=== PATIENT | male | born 1960 | race Two or more races ===

== ENCOUNTER 2018-07-23 10:25 | Emergency (ER) | payer MEDICAID ==
[~2018-07-23] VITALS: Ht 185.4 cm; Wt 128.0 kg
[~2018-07-23 10:25] MED LIST: AMLO10TA4 PO; COUMADIN PO; CYCL-1 PO; ENOX100D2 IM; HYDR-4383 PO; LISI10TA4 PO
[2018-07-23] MEDS ORDERED: tranexamic acid 100mg/ml inj. TP ONE (11:05)
[2018-07-23 11:27] LABS: BASOPHILS % (AUTO) 0.3 % (0-1); EOSINOPHILS # (AUTO) 0.1 X10'3 (0-0.9); EOSINOPHILS % (AUTO) 0.9 % (0-6); HEMATOCRIT 29.6 % (42.0-52.0); HEMOGLOBIN 9.8 g/dl (14.0-17.9); LYMPHOCYTES % (AUTO) 18.1 % (21-51); MEAN CORPUSCULAR HEMOGLOBIN 27.9 PG (27.0-31.0); MEAN CORPUSCULAR VOLUME 84.4 FL (78-98); MEAN PLATELET VOLUME 9.2 FL (7.4-10.4); MONOCYTES # (AUTO) 0.7 X10'3 (0-0.9); MONOCYTES % (AUTO) 5.9 % (2-12); NEUTROPHILS # (AUTO) 8.3 X10'3 (1.8-7.7); NEUTROPHILS % (AUTO) 74.8 % (42-75); PLATELET COUNT 206 X10'3 (140-440); RED BLOOD COUNT 3.51 X10'6 (4.70-6.10); RED CELL DISTRIBUTION WIDTH 16.3 % (11.5-14.5); WHITE BLOOD COUNT 11.1 X10'3 (4.5-11.0)
[2018-07-23] MEDS ORDERED: ondansetron/PF 4mg/2ml inj IV ONE (11:30)
[2018-07-23 11:36] LABS: ALBUMIN 3.3 G/DL (3.4-5.0); ANION GAP 9 (8-16); BLOOD UREA NITROGEN 23 MG/DL (7-18); BUN/CREATININE RATIO 28.4 (5.4-32.0); CHLORIDE 105 MMOL/L (99-107); CREATININE 0.81 MG/DL (0.60-1.10); GLUCOSE 191 MG/DL (70-104); POTASSIUM 4.1 MMOL/L (3.5-5.1); SODIUM 141 MMOL/L (135-145); TOTAL CARBON DIOXIDE 27.4 MMOL/L (24-32); eGFR > 90 ML/MIN
[2018-07-23 11:38] LABS: PROTHROMBIN TIME 19.7 SECONDS (9.0-12.0)
[2018-07-23 13:32] VITALS: BP 153/100
== END 2018-07-23 13:34 | disposition short-term general hospital (02) ==
LOC: ER 10:25
DX: R04.0 Epistaxis (principal); I11.0 Hypertensive heart disease with heart failure; I50.9 Heart failure, unspecified; Z98.890 Other specified postprocedural states; Z79.899 Other long term (current) drug therapy
CPT/HCPCS: 30901; 36415; 80048; 85025; 85610; 96374; 99285; J2405

== ENCOUNTER → 2021-03-13 | Emergency (ER) | payer MEDICAID ==
[~2021-03-13] VITALS: Ht 170.2 cm; Wt 124.0 kg
[~2021-03-13] MED LIST changes: +LISI10TA27 PO; -LISI10TA4 PO; +OXYM30SP26 BOTHNARES; +oxymetazoline 15 ML nasal spray NS ONE; +tranexamic acid 100mg/ml inj. TP ONE
[2021-03-13 19:14] VITALS: BP 169/97
--- NOTE | 2021-03-14 03:11 | NUR ---
PT DISCHARGED IN ERROR
== END | disposition home or self-care (01) ==
LOC: ER 18:57
DX: R04.0 Epistaxis (principal); I11.0 Hypertensive heart disease with heart failure; I50.9 Heart failure, unspecified; Z98.890 Other specified postprocedural states; Z79.899 Other long term (current) drug therapy
CPT/HCPCS: 99282

== ENCOUNTER 2021-08-16 17:31 | Emergency (ER) | payer MEDICAID ==
[~2021-08-16] VITALS: Ht 180.3 cm; Wt 118.2 kg
[~2021-08-16 17:31] MED LIST changes: +LIDOcaine 1% W/epiNEPHrine 1:100,000 20ml vial ONE; -oxymetazoline 15 ML nasal spray NS ONE; -tranexamic acid 100mg/ml inj. TP ONE
[2021-08-16] MEDS ORDERED: HYDR-3965 PO (19:55)
[2021-08-16] MEDS ORDERED: CEPH250T PO (19:55)
[2021-08-16 20:05] VITALS: BP 168/97
== END 2021-08-16 20:22 | disposition home or self-care (01) ==
LOC: ER 20:17
DX: S61.412A Laceration without foreign body of left hand, initial encounter (principal); I11.0 Hypertensive heart disease with heart failure; I50.9 Heart failure, unspecified; Z79.899 Other long term (current) drug therapy; Z79.01 Long term (current) use of anticoagulants; W45.8XXA Other foreign body or object entering through skin, initial encounter; Y93.89 Activity, other specified; Y92.89 Other specified places as the place of occurrence of the external cause; Y99.8 Other external cause status
CPT/HCPCS: 12002; 99283; J3490

== ENCOUNTER 2023-03-22 01:04 | Emergency (ER) | payer MEDICAID ==
[~2023-03-22] VITALS: Ht 177.8 cm; Wt 122.7 kg
[~2023-03-22 01:04] MED LIST changes: -LIDOcaine 1% W/epiNEPHrine 1:100,000 20ml vial ONE
[2023-03-22 01:13] VITALS: TEMP 98.9
[2023-03-22] MEDS ORDERED: LORazepam 2 mg/ml vial IV ONE (02:35)
[2023-03-22] MEDS ORDERED: hydrALAZINE 20mg/ml inj. IV ONE (02:35)
[2023-03-22 02:57] LABS: BASOPHILS # (AUTO) 0.1 X10'3 (0-0.2); BASOPHILS % (AUTO) 0.7 % (0-1); EOSINOPHILS # (AUTO) 0.2 X10'3 (0-0.9); EOSINOPHILS % (AUTO) 2.3 % (0-6); HEMATOCRIT 47.8 % (42.0-52.0); HEMOGLOBIN 15.5 g/dl (14.0-17.9); LYMPHOCYTES # (AUTO) 1.3 X10'3 (1.1-4.8); MEAN CORPUSCULAR HEMOGLOBIN 27.1 PG (27.0-31.0); MEAN CORPUSCULAR HGB CONC 32.5 g/dL (33.0-36.5); MEAN CORPUSCULAR VOLUME 83.4 FL (78-98); MONOCYTES # (AUTO) 0.7 X10'3 (0-0.9); NEUTROPHILS # (AUTO) 5.1 X10'3 (1.8-7.7); PLATELET COUNT 182 X10'3 (140-440); RED BLOOD COUNT 5.73 X10'6 (4.70-6.10); RED CELL DISTRIBUTION WIDTH 15.7 % (11.5-14.5); WHITE BLOOD COUNT 7.3 X10'3 (4.5-11.0)
[2023-03-22 03:10] LABS: ALANINE AMINOTRANSFERASE 23 U/L (12-78); ALBUMIN 3.9 G/DL (3.4-5.0); ALBUMIN/GLOBULIN RATIO 1.1 (1.1-1.5); ALKALINE PHOSPHATASE 83 IU/L (46-116); ANION GAP 8 (8-16); ASPARTATE AMINO TRANSFERASE 24 U/L (10-37); BILIRUBIN,TOTAL 0.8 MG/DL (0.1-1.0); BLOOD UREA NITROGEN 15 MG/DL (7-18); CALCIUM 8.7 MG/DL (8.5-10.1); CHLORIDE 102 MMOL/L (99-107); CREATININE 0.88 MG/DL (0.60-1.10); GLUCOSE 167 MG/DL (70-104); POTASSIUM 3.5 MMOL/L (3.5-5.1); SODIUM 138 MMOL/L (135-145); TOTAL CARBON DIOXIDE 28.2 MMOL/L (24-32); TOTAL PROTEIN 7.6 G/DL (6.4-8.2); eCRCL 89 ML/MIN; eGFR 87 ML/MIN
[2023-03-22 03:14] LABS: PROTHROMBIN TIME 39.8 SECONDS (9.0-12.0)
--- NOTE | 2023-03-22 03:17 | NUR ---
PT PRESENTS W/ EPISTAXIS AND HTN 260/152 P 95 NAD NOTED THUS FAR. PT CURRENTLY TAKIN GAMLODIPINE 10MG PO QD, LISINOPRIL 10MG PO QD, AFRIN NASAL SPRAY 30ML QD, COUMADIN 4 MG PO QD. LAST TAKEN ALL MEDS NOTED QHS ON 03/21/23. NOTIFIED.
[2023-03-22] MEDS ORDERED: tranexamic acid 100mg/ml inj. TP ONE (04:10)
[2023-03-22] MEDS ORDERED: metoprolol tartrate 50mg tablet PO ONE (04:10)
[2023-03-22] MEDS ORDERED: oxymetazoline 15 ML nasal spray NS ONE (04:10)
[2023-03-22] MEDS ORDERED: HYDROchlorothiazide 25mg tablet PO ONE (04:10)
[2023-03-22] MEDS ORDERED: LIDOcaine 1% W/epiNEPHrine 1:100,000 20ml vial IJ ONE (04:25)
[2023-03-22] MEDS ORDERED: hydrALAZINE 20mg/ml inj. IV STA (04:54)
[2023-03-22] MEDS ORDERED: ondansetron/PF 4mg/2ml inj IV ONE (06:00)
[2023-03-22] MEDS ORDERED: OXYM-21 BOTHNARES (06:09)
[2023-03-22] MEDS ORDERED: cloNIDine 0.1 mg tablet PO ONE (07:05)
--- NOTE | 2023-03-22 07:06 | NUR ---
per nightman RN, IV Hydralazine held due to BP coming down. This RN assume care of pt. SBP >170. Dr. Castro updated. Clonidine ordered.
[2023-03-22] MEDS ORDERED: CEPH-585 PO (09:06)
[2023-03-22 09:30] VITALS: BP 134/78; PULSE 58; RESP 18; O2SAT 98
== END 2023-03-22 09:22 | disposition home or self-care (01) ==
LOC: ER 01:04
DX: R04.0 Epistaxis (principal); I11.0 Hypertensive heart disease with heart failure; I50.9 Heart failure, unspecified; Z79.2 Long term (current) use of antibiotics; Z79.899 Other long term (current) drug therapy; Z79.01 Long term (current) use of anticoagulants
CPT/HCPCS: 36415; 80053; 84484; 85025; 85610; 96374; 96375; 99285; J0360; J2060

== ENCOUNTER 2023-03-24 07:20 | Emergency (ER) | payer MEDICAID ==
[~2023-03-24] VITALS: Ht 175.3 cm; Wt 120.0 kg
[~2023-03-24 07:20] MED LIST changes: +CEPH-585 PO; +OXYM-21 BOTHNARES
[2023-03-24 07:29] VITALS: BP 195/116; PULSE 79; RESP 18; TEMP 97.6; O2SAT 96
--- NOTE | 2023-03-24 07:31 | NUR ---
[id number]
== END 2023-03-24 09:39 | disposition home or self-care (01) ==
LOC: ER 07:20
DX: Z48.00 Encounter for change or removal of nonsurgical wound dressing (principal); R04.0 Epistaxis; R03.0 Elevated blood-pressure reading, without diagnosis of hypertension; I11.0 Hypertensive heart disease with heart failure; I50.9 Heart failure, unspecified; Z79.2 Long term (current) use of antibiotics; Z79.899 Other long term (current) drug therapy
CPT/HCPCS: 99281

== ENCOUNTER 2024-03-06 00:48 | Inpatient (IN) | payer MEDICAID ==
[~2024-03-06] VITALS: Ht 170.2 cm; Wt 125.4 kg
[2024-03-06] VITALS (13 sets, daily range): BP systolic 132–158; BP diastolic 56–74; PULSE 61–95; RESP 16–20; TEMP 97–99.4; O2SAT 93–98
[~2024-03-06 00:48] MED LIST changes: -CEPH-585 PO
[2024-03-06 01:13] LABS: BASOPHILS # (AUTO) 0.1 X10'3 (0-0.2); BASOPHILS % (AUTO) 0.9 % (0-1); EOSINOPHILS # (AUTO) 0.2 X10'3 (0-0.9); EOSINOPHILS % (AUTO) 2.2 % (0-6); HEMATOCRIT 38.3 % (42.0-52.0); HEMOGLOBIN 12.2 g/dl (14.0-17.9); LYMPHOCYTES # (AUTO) 1.2 X10'3 (1.1-4.8); LYMPHOCYTES % (AUTO) 14.5 % (21-51); MEAN CORPUSCULAR HEMOGLOBIN 26.2 PG (27.0-31.0); MEAN CORPUSCULAR HGB CONC 31.9 g/dL (33.0-36.5); MEAN CORPUSCULAR VOLUME 82.1 FL (78-98); MEAN PLATELET VOLUME 8.6 FL (7.4-10.4); MONOCYTES # (AUTO) 0.6 X10'3 (0-0.9); NEUTROPHILS # (AUTO) 6.2 X10'3 (1.8-7.7); NEUTROPHILS % (AUTO) 75.4 % (42-75); PLATELET COUNT 167 X10'3 (140-440); RED BLOOD COUNT 4.66 X10'6 (4.70-6.10); RED CELL DISTRIBUTION WIDTH 18.7 % (11.5-14.5); WHITE BLOOD COUNT 8.3 X10'3 (4.5-11.0)
[2024-03-06 01:41] LABS: ALANINE AMINOTRANSFERASE 31 U/L (12-78); ALBUMIN 3.4 G/DL (3.4-5.0); ALBUMIN/GLOBULIN RATIO 0.9 (1.1-1.5); ALKALINE PHOSPHATASE 86 IU/L (46-116); ANION GAP 6 (8-16); ASPARTATE AMINO TRANSFERASE 36 U/L (10-37); BILIRUBIN,TOTAL 0.6 MG/DL (0.1-1.0); BLOOD UREA NITROGEN 16 MG/DL (7-18); CALCIUM 8.3 MG/DL (8.5-10.1); CHLORIDE 104 MMOL/L (99-107); CREATININE 0.94 MG/DL (0.60-1.10); GLUCOSE 222 MG/DL (70-104); PRO BRAIN NATRIURETIC PEPTIDE 829 PG/ML (0-125); SODIUM 139 MMOL/L (135-145); TOTAL CARBON DIOXIDE 29.2 MMOL/L (24-32); eCRCL 74 ML/MIN; eGFR 81 ML/MIN
[2024-03-06 01:44] LABS: POTASSIUM 3.7 MMOL/L (3.5-5.1)
[2024-03-06 02:07] LABS: BILIRUBIN,URINE NEGATIVE (Neg); CLARITY,URINE CLEAR (Clear); COLOR,URINE YELLOW (Yellow); GLUCOSE, URINE >=1000 mg/dl (Neg); KETONES,URINE NEGATIVE (Neg); LEUKOCYTE ESTERASE ,URINE NEGATIVE (Neg); NITRITES, URINE NEGATIVE (Neg); OCCULT BLOOD,URINE TRACE-INTACT (Neg); PROTEIN,URINE 100 mg/dl (Neg)
[2024-03-06 02:12] LABS: UA COLLECTION TYPE VOIDED
[2024-03-06 02:15] LABS: BACTERIA,URINE FEW /HPF (Neg); RBC,URINE 0-2 /HPF (0-2); SQUAMOUS EPITHELIAL CELL,UR FEW /LPF (FEW); WBC,URINE 0-4 /HPF (0-4)
[2024-03-06] MEDS ORDERED: WARF1TAB83 (02:51)
[2024-03-06] MEDS ORDERED: AMLO10TA13 PO (02:51)
[2024-03-06] MEDS ORDERED: LISI30TA4 PO (02:51)
[2024-03-06] MEDS ORDERED: ATOR20TA66 PO (02:51)
[2024-03-06 02:53] LABS: ANISOCYTOSIS 2+; PLATELET ESTIMATE NORMAL
[2024-03-06 02:54] LABS: ELLIPTOCYTES FEW; POLYCHROMASIA FEW
[2024-03-06] MEDS: aspirin 325mg tablet PO ONE (03:02)
[2024-03-06] MEDS: furosemide 10 MG/1 ML 10ml inj IV ONE (03:02)
[2024-03-06] MEDS: amLODIPine 5mg tablet PO ONE (03:02)
[2024-03-06] MEDS ORDERED: ondansetron/PF 4mg/2ml inj IV PRN (04:30)
[2024-03-06] MEDS ORDERED: HYDROcodone/acetaminophen 5mg/325mg tablet PO PRN (04:30)
[2024-03-06] MEDS ORDERED: potassium Cl 40MEQ/1/2NS 520ml 520 ML IV PRN (04:30)
[2024-03-06] MEDS ORDERED: acetaminophen 325mg tablet PO PRN ×2 (04:30)
[2024-03-06] MEDS ORDERED: magnesium sulf-water 2g/50mL 50 ML IV PRN (04:30)
[2024-03-06] MEDS ORDERED: potassium Cl 20 mEq SR tablet PO PRN ×2 (04:30)
[2024-03-06] MEDS ORDERED: magnesium sulf-water 4G/100mL 100 ML IV PRN (04:30)
[2024-03-06] MEDS ORDERED: mag hydrox/Alum hydrox/simeth 30ml oral suspension PO PRN (04:30)
[2024-03-06] MEDS ORDERED: magnesium Cl slow-release 64mg tablet PO PRN (04:30)
[2024-03-06 05:01] LABS: HEMOGLOBIN A1C 10.3 % (4.5-6.2)
[2024-03-06 05:15] LABS: FREE T4 (FREE THYROXINE) 1.13 NG/DL (0.73-1.40); THYROID STIMULATING HORMONE 2.58 ulU/ml (0.34-4.50)
[2024-03-06 05:45] LABS: MAGNESIUM 1.9 MG/DL (1.5-2.4); POTASSIUM 3.7 MMOL/L (3.5-5.1)
[2024-03-06] MEDS: K and/or MAG REPLACEMENT MC SCH (08:00)
[2024-03-06] MEDS: amLODIPine 5mg tablet PO SCH (08:22)
[2024-03-06] MEDS: aspirin 81mg, enteric-coated 1 TAB TABLET.DR PO SCH (08:23)
[2024-03-06] MEDS: atorvastatin 20mg tablet PO SCH (08:23)
[2024-03-06] MEDS: lisinopril 10 MG tablet PO SCH (08:24)
[2024-03-06] MEDS: furosemide 40mg/4ml inj IV SCH (08:24)
[2024-03-06] MEDS ORDERED: dextrose 50%-water 50ml dispensing syringe IV PRN ×2 (10:45)
[2024-03-06] MEDS ORDERED: DEXTROSE 15 GM of carb/4 tabs (each vial/BOTTLE has 4 tablets) PO PRN ×2 (10:45)
[2024-03-06] MEDS ORDERED: glucagon, human recombinant 1mg kit SUBCUT PRN (10:45)
[2024-03-06 10:48] LABS: INR 3.3 INR; PROTHROMBIN TIME 32.7 SECONDS (9.0-12.0)
[2024-03-06] MEDS: methylPREDNISolone sod succ 125mg/2ml vial IV ONE (12:35)
[2024-03-06] MEDS: CefTRIAXone/D5W-Rocephin 1gm 50 ML IV SCH (13:47)
[2024-03-06] MEDS: azithromycin/NS 500mg/250ml 250 ML IV SCH (14:31)
[2024-03-06] MEDS: INSULIN LISPRO 100 UNIT/ML INSULN.PEN MULTI-DOSE SQ SCH ×2 (14:47)
[2024-03-06] MEDS: ipratropium/albuterol 3ml nebule NEB SCH (15:00)
[2024-03-06] MEDS: methylPREDNISolone sod succ 125mg/2ml vial IV SCH (17:20)
[2024-03-06] MEDS: warfarin 1mg tablet PO ONE (20:34)
[2024-03-06] MEDS: insulin glargine (Lantus) pen - multi-dose SQ SCH (22:14)
[2024-03-07] VITALS (13 sets, daily range): BP systolic 108–162; BP diastolic 54–85; PULSE 55–95; RESP 15–18; TEMP 96.9–99.1; O2SAT 91–99
[2024-03-07 07:44] LABS: BASOPHILS % (AUTO) 0.2 % (0-1); EOSINOPHILS % (AUTO) 0.1 % (0-6); HEMOGLOBIN 13.7 g/dl (14.0-17.9); LYMPHOCYTES # (AUTO) 0.5 X10'3 (1.1-4.8); LYMPHOCYTES % (AUTO) 4.5 % (21-51); MEAN CORPUSCULAR HEMOGLOBIN 26.8 PG (27.0-31.0); MEAN CORPUSCULAR HGB CONC 32.6 g/dL (33.0-36.5); MEAN CORPUSCULAR VOLUME 82.4 FL (78-98); MEAN PLATELET VOLUME 9.1 FL (7.4-10.4); MONOCYTES # (AUTO) 0.1 X10'3 (0-0.9); MONOCYTES % (AUTO) 1.4 % (2-12); NEUTROPHILS # (AUTO) 9.8 X10'3 (1.8-7.7); NEUTROPHILS % (AUTO) 93.8 % (42-75); PLATELET COUNT 173 X10'3 (140-440); RED CELL DISTRIBUTION WIDTH 19.1 % (11.5-14.5); WHITE BLOOD COUNT 10.5 X10'3 (4.5-11.0)
[2024-03-07 08:03] LABS: PROTHROMBIN TIME 29.3 SECONDS (9.0-12.0)
[2024-03-07 08:35] LABS: ALBUMIN 3.3 G/DL (3.4-5.0); ANION GAP 11 (8-16); BLOOD UREA NITROGEN 20 MG/DL (7-18); BUN/CREATININE RATIO 22.7 (10.0-20.0); CALCIUM 8.7 MG/DL (8.5-10.1); CHLORIDE 102 MMOL/L (99-107); CHOL/HDL RATIO 2.8 (0.00-4.99); CHOLESTEROL 157 MG/DL (0-200); CREATININE 0.88 MG/DL (0.60-1.10); GLUCOSE 287 MG/DL (70-104); HDL CHOLESTEROL 57 MG/DL (35-60); LDL CHOLESTEROL 84 MG/DL (50-100); MAGNESIUM 1.9 MG/DL (1.5-2.4); PHOSPHORUS 5.2 MG/DL (2.3-4.5); POTASSIUM 3.9 MMOL/L (3.5-5.1); SODIUM 141 MMOL/L (135-145); TOTAL CARBON DIOXIDE 28.5 MMOL/L (24-32); TRIGLYCERIDES 44 MG/DL (20-135); eCRCL 79 ML/MIN; eGFR 87 ML/MIN
[2024-03-07] MEDS: docusate sod 100mg capsule PO SCH (10:52)
[2024-03-07] MEDS: bisacodyl 10mg suppository rectal RC PRN (10:52)
[2024-03-07] MEDS: ipratropium/albuterol 3ml nebule NEB PRN (11:11)
[2024-03-07] MEDS: EMPAGLIFLOZIN 10 MG TABLET PO SCH (13:05)
[2024-03-07] MEDS: INSULIN LISPRO 100 UNIT/ML INSULN.PEN MULTI-DOSE SQ SCH (18:00)
[2024-03-07] MEDS: warfarin 1mg tablet PO ONE (20:22)
[2024-03-07] MEDS: insulin glargine (Lantus) pen - multi-dose SQ SCH (21:31)
[2024-03-08 03:13] VITALS: PULSE 76; RESP 15
[2024-03-08 06:32] VITALS: BP 110/55; PULSE 69; RESP 17; TEMP 97.1; O2SAT 90
[2024-03-08 08:00] VITALS: RESP 16; O2SAT 100
[2024-03-08 08:17] VITALS: BP_SYST 110
[2024-03-08] MEDS: spironolactone 25 MG tablet PO SCH (08:17)
[2024-03-08] MEDS: methylPREDNISolone sod succ/PF 40mg inj. IV SCH (08:18)
[2024-03-08] MEDS: furosemide 40mg/4ml inj IV SCH (08:19)
[2024-03-08 08:42] LABS: BASOPHILS % (AUTO) 0 % (0-1); EOSINOPHILS % (AUTO) 0 % (0-6); HEMATOCRIT 42.6 % (42.0-52.0); HEMOGLOBIN 13.7 g/dl (14.0-17.9); LYMPHOCYTES # (AUTO) 0.6 X10'3 (1.1-4.8); LYMPHOCYTES % (AUTO) 4.2 % (21-51); MEAN CORPUSCULAR HEMOGLOBIN 26.4 PG (27.0-31.0); MEAN CORPUSCULAR HGB CONC 32.1 g/dL (33.0-36.5); MEAN CORPUSCULAR VOLUME 82.3 FL (78-98); MEAN PLATELET VOLUME 9.1 FL (7.4-10.4); MONOCYTES # (AUTO) 0.4 X10'3 (0-0.9); MONOCYTES % (AUTO) 2.6 % (2-12); NEUTROPHILS # (AUTO) 12.4 X10'3 (1.8-7.7); NEUTROPHILS % (AUTO) 93.2 % (42-75); PLATELET COUNT 185 X10'3 (140-440); RED BLOOD COUNT 5.17 X10'6 (4.70-6.10); RED CELL DISTRIBUTION WIDTH 19.1 % (11.5-14.5); WHITE BLOOD COUNT 13.3 X10'3 (4.5-11.0)
[2024-03-08 09:10] LABS: INR 2.8 INR; PROTHROMBIN TIME 27.5 SECONDS (9.0-12.0)
[2024-03-08 09:13] LABS: ALBUMIN 3.3 G/DL (3.4-5.0); ANION GAP 12 (8-16); BLOOD UREA NITROGEN 30 MG/DL (7-18); BUN/CREATININE RATIO 33.3 (10.0-20.0); CHLORIDE 103 MMOL/L (99-107); GLUCOSE 194 MG/DL (70-104); MAGNESIUM 2.1 MG/DL (1.5-2.4); PHOSPHORUS 6.2 MG/DL (2.3-4.5); SODIUM 144 MMOL/L (135-145); TOTAL CARBON DIOXIDE 29.1 MMOL/L (24-32); eCRCL 78 ML/MIN; eGFR 85 ML/MIN
[2024-03-08 09:26] LABS: PLATELET ESTIMATE NORMAL
[2024-03-08 09:27] LABS: ANISOCYTOSIS 2+; ELLIPTOCYTES FEW; POLYCHROMASIA FEW
[2024-03-08 11:31] VITALS: PULSE 60; RESP 18; O2SAT 97
[2024-03-08 11:37] VITALS: PULSE 76; RESP 16
[2024-03-08] MEDS ORDERED: EMPA10TA PO (13:28)
[2024-03-08] MEDS ORDERED: ASPI-1071 PO (13:28)
[2024-03-08] MEDS ORDERED: SPIR25TA PO (13:28)
[2024-03-08] MEDS ORDERED: METF-1203 PO ×2 (13:28→13:41)
[2024-03-08] MEDS ORDERED: LINA5TAB4 PO (13:28)
[2024-03-08] MEDS ORDERED: LACT1CAP26 PO (13:30)
[2024-03-08] MEDS ORDERED: ALBU8HFA INH (13:30)
[2024-03-08] MEDS ORDERED: CEFD300C3 PO (13:30)
[2024-03-08] MEDS ORDERED: BUDE10.2 INH (13:30)
[2024-03-08] MEDS ORDERED: PRED10TA23 PO (13:33)
[2024-03-08] MEDS ORDERED: FURO-150 PO (13:39)
== END 2024-03-08 15:02 | disposition home or self-care (01) | DRG 133 ==
LOC: ER 00:49 → ED HOLD 04:30 → ORTHO 4S 09:26
PROVIDERS: ADMIT Student in an Organized Health Care Education/Training Program; ATTEND Family Medicine
PROC: 5A09357 Assistance with Respiratory Ventilation, Less than 24 Consecutive Hours, Continuous Positive Airway Pressure (ICD-10-PCS; principal; 2024-03-06)
PROC: 5A09357 Assistance with Respiratory Ventilation, Less than 24 Consecutive Hours, Continuous Positive Airway Pressure (ICD-10-PCS; 2024-03-07)
DX: J96.01 Acute respiratory failure with hypoxia (principal); I50.23 Acute on chronic systolic (congestive) heart failure; I21.A1 Myocardial infarction type 2; E44.1 Mild protein-calorie malnutrition; I11.0 Hypertensive heart disease with heart failure; I47.29 Other ventricular tachycardia; J44.1 Chronic obstructive pulmonary disease with (acute) exacerbation; E88.810 Metabolic syndrome; J84.89 Other specified interstitial pulmonary diseases; G47.33 Obstructive sleep apnea (adult) (pediatric); I48.91 Unspecified atrial fibrillation; E66.01 Morbid (severe) obesity due to excess calories; E11.9 Type 2 diabetes mellitus without complications; E78.5 Hyperlipidemia, unspecified; Z79.899 Other long term (current) drug therapy; Z95.1 Presence of aortocoronary bypass graft; Z87.891 Personal history of nicotine dependence; Z68.41 Body mass index [BMI] 40.0-44.9, adult
CPT/HCPCS: 36415; 71045; 71250; 80048; 80053; 80061; 81001; 82948; 83036; 83605; 83735; 83880; 84100; 84132; 84145; 84439; 84443; 84484; 85008; 85025; 85610; 87040; 87081; 93005; 93306; 94640; 94660; 94760; 97116; 97161; 97530; 99285; G0378; J0456; J0696; J1815; J1940; J2919

== ENCOUNTER 2024-03-21 11:36 | Emergency (ER) | payer MEDICAID ==
[~2024-03-21] VITALS: Ht 172.7 cm; Wt 120.4 kg
[~2024-03-21 11:36] MED LIST changes: +ALBU8HFA INH; +AMLO10TA13 PO; -AMLO10TA4 PO; +ASPI-1071 PO; +ATOR20TA66 PO; +BUDE10.2 INH; -COUMADIN PO; -CYCL-1 PO; +EMPA10TA PO; -ENOX100D2 IM; +FURO-150 PO; -HYDR-4383 PO; +LACT1CAP26 PO; +LINA5TAB4 PO; -LISI10TA27 PO; +LISI30TA4 PO; +METF-1203 PO; -OXYM-21 BOTHNARES; -OXYM30SP26 BOTHNARES; +PRED10TA23 PO; +SPIR25TA PO; +WARF1TAB83
[2024-03-21 12:15] LABS: BASOPHILS # (AUTO) 0.1 X10'3 (0-0.2); BASOPHILS % (AUTO) 0.7 % (0-1); EOSINOPHILS # (AUTO) 0.1 X10'3 (0-0.9); EOSINOPHILS % (AUTO) 0.4 % (0-6); HEMATOCRIT 48.3 % (42.0-52.0); HEMOGLOBIN 15.5 g/dl (14.0-17.9); LYMPHOCYTES # (AUTO) 1.3 X10'3 (1.1-4.8); LYMPHOCYTES % (AUTO) 8.2 % (21-51); MEAN CORPUSCULAR HEMOGLOBIN 26.6 PG (27.0-31.0); MEAN CORPUSCULAR HGB CONC 32.1 g/dL (33.0-36.5); MEAN CORPUSCULAR VOLUME 83.1 FL (78-98); MEAN PLATELET VOLUME 9.3 FL (7.4-10.4); MONOCYTES # (AUTO) 0.6 X10'3 (0-0.9); MONOCYTES % (AUTO) 3.7 % (2-12); NEUTROPHILS # (AUTO) 13.5 X10'3 (1.8-7.7); PLATELET COUNT 175 X10'3 (140-440); RED BLOOD COUNT 5.82 X10'6 (4.70-6.10); RED CELL DISTRIBUTION WIDTH 18.4 % (11.5-14.5); WHITE BLOOD COUNT 15.5 X10'3 (4.5-11.0)
[2024-03-21 12:39] LABS: ALBUMIN 3.4 G/DL (3.4-5.0); ANION GAP 7 (8-16); BLOOD UREA NITROGEN 56 MG/DL (7-18); BUN/CREATININE RATIO 34.8 (10.0-20.0); CALCIUM 8.7 MG/DL (8.5-10.1); CHLORIDE 103 MMOL/L (99-107); CREATININE 1.61 MG/DL (0.60-1.10); GLUCOSE 203 MG/DL (70-104); POTASSIUM 5.6 MMOL/L (3.5-5.1); PRO BRAIN NATRIURETIC PEPTIDE 430 PG/ML (0-125); SODIUM 137 MMOL/L (135-145); TOTAL CARBON DIOXIDE 27.5 MMOL/L (24-32); eCRCL 45 ML/MIN; eGFR 43 ML/MIN
[2024-03-21] MEDS: normal saline 1000ml 1,000 ML IV ONE (13:06)
[2024-03-21 13:22] LABS: BILIRUBIN,URINE NEGATIVE (Neg); CLARITY,URINE SLIGHTLY CLOUDY (Clear); COLOR,URINE YELLOW (Yellow); GLUCOSE, URINE >=1000 mg/dl (Neg); KETONES,URINE NEGATIVE (Neg); LEUKOCYTE ESTERASE ,URINE NEGATIVE (Neg); NITRITES, URINE NEGATIVE (Neg); OCCULT BLOOD,URINE TRACE-INTACT (Neg); PH,URINE 5.5 (4.8-8.0); PROTEIN,URINE TRACE mg/dl (Neg); UROBILINOGEN,URINE 0.2 E.U/dL (0.2-1.0)
[2024-03-21 13:28] LABS: UA COLLECTION TYPE CLN CATCH MIDSTREAM
[2024-03-21 13:29] LABS: MUCUS STRANDS FEW /LPF (Neg)
[2024-03-21 13:30] LABS: WBC,URINE 0-4 /HPF (0-4)
[2024-03-21 13:31] LABS: BACTERIA,URINE FEW /HPF (Neg); SQUAMOUS EPITHELIAL CELL,UR FEW /LPF (FEW)
[2024-03-21 15:38] VITALS: BP 134/81; PULSE 77; RESP 18; TEMP 98.4; O2SAT 97
== END 2024-03-21 15:41 | disposition home or self-care (01) ==
LOC: ER 11:37
DX: R53.1 Weakness (principal); I11.0 Hypertensive heart disease with heart failure; I50.9 Heart failure, unspecified; E11.9 Type 2 diabetes mellitus without complications; Z79.899 Other long term (current) drug therapy; Z79.82 Long term (current) use of aspirin
CPT/HCPCS: 36415; 71045; 80048; 81001; 83880; 84484; 85025; 93005; 96360; 96361; 99285; J7030